=== PATIENT | female | born 1985 | race Caucasian/White ===

== ENCOUNTER 2019-04-30 12:50 | Emergency (ER) | payer BC ==
[~2019-04-30] VITALS: Ht 162.6 cm; Wt 94.3 kg
[2019-04-30] MEDS ORDERED: IV NORMAL SALINE 1,000ML 1,000 ML IV SCH (13:03)
[2019-04-30] MEDS ORDERED: diphenhydrAMINE 50 MG/ML VIAL IVP ONE (13:15)
[2019-04-30] MEDS ORDERED: METOCLOPRAMIDE HCL 10 MG/2 ML VIAL. IVP ONE (13:15)
[2019-04-30] MEDS ORDERED: SUMAtriptan SUCC 6 MG/0.5 ML VIAL SQ ONE (13:15)
[2019-04-30] MEDS ORDERED: HYDROmorphone PF 1 MG/ML DISP.SYRIN IV ONE (13:15)
--- NOTE | 2019-04-30 13:18 | PHYS DOC ---
Past History Past Medical History: Other Past Surgical History: Tubal ligation Alcohol Use: Occasionally Drug Use: None Adult General Chief Complaint Chief Complaint: HEADACHE HPI HPI Patient is a 33-year-old female who presents with complaint of migraine headache that started 4 hours ago. Patient states that she has had several episodes of vomiting since onset of the headache. Patient indicates headache is on the right hand side and she rates pain at an 7-8 out of 10. She describes pain as throbbing in nature. She denies any fever. She denies any chest pain or shortness of breath. She also denies any abdominal pain. Patient states that pain is worsened with change of position.[] Review of Systems Review of Systems Constitutional: Denies fever or chills [] Respiratory: Denies cough or shortness of breath [] Cardiovascular: No additional information not addressed in HPI [] GI: Denies abdominal pain. Complains of nausea and vomiting without diarrhea [] Integument: Denies rash or skin lesions [] Neurologic: Complains of headache without focal weakness or sensory changes [] Current Medications Current Medications Current Medications Medications (Trade) Dose Ordered Sig/Karmen Start Time Stop Time Status Last Admin Dose Admin Diphenhydramine HCl (Benadryl) 25 mg 1X ONCE 04/30/19 13:15 04/30/19 13:16 Hydromorphone HCl (Dilaudid) 1 mg 1X ONCE 04/30/19 13:15 04/30/19 13:16 Metoclopramide HCl (Reglan Vial) 10 mg 1X ONCE 04/30/19 13:15 04/30/19 13:16 Sodium Chloride 1,000 ml @ 1,000 mls/hr Q1H 04/30/19 13:03 04/30/19 14:02 Sumatriptan Succinate (Imitrex) 6 mg 1X ONCE 04/30/19 13:15 04/30/19 13:16 Allergies Allergies Allergies Coded Allergies Type Severity Reaction Last Updated Verified No Known Drug Allergies 04/30/19 No Physical Exam Physical Exam Constitutional: Well developed, well nourished, in mild distress, non-toxic appearance. [] Eyes: PERRLA, EOMI, conjunctiva normal, no discharge. [] Neck: Normal range of motion, no tenderness, supple, no stridor. [] Cardiovascular: Regular rate and rhythm[] Lungs & Thorax: Bilateral breath sounds clear to auscultation [] Abdomen: Bowel sounds normal, soft, no tenderness. [] Neurologic: Alert and oriented X 3, no focal deficits noted. [] EKG EKG [] Radiology/Procedures Radiology/Procedures [] Course & Med Decision Making Course & Med Decision Making Pertinent Labs and Imaging studies reviewed. (See chart for details) [] Dragon Disclaimer Dragon Disclaimer This electronic medical record was generated, in whole or in part, using a voice recognition dictation system. Departure Departure: Impression: Primary Impression: Migraine Disposition: 01 HOME, SELF-CARE Condition: STABLE Referrals: IRMA BERGERON MD (PCP) Patient Instructions: Migraine Headache Problem Qualifiers Primary Impression: Migraine Migraine type: unspecified Status migrainosus presence: without status migrainosus Intractability: not intractable Qualified Codes: G43.909 - Migraine, unspecified, not intractable, without status migrainosus JESICA SMITH Jr. DO Apr 30, 2019 13:18
[2019-04-30 13:54] VITALS: BP 100/50
== END 2019-04-30 13:55 | disposition home or self-care (01) ==
LOC: ER 12:50
DX: G43.909 Migraine, unspecified, not intractable, without status migrainosus (principal); R11.2 Nausea with vomiting, unspecified
CPT/HCPCS: 96372; 96374; 96375; 99284; J1170; J1200; J2765; J3030; J7030

== ENCOUNTER 2019-05-06 18:56 | Emergency (ER) | payer BC ==
[~2019-05-06] VITALS: Ht 162.6 cm; Wt 94.3 kg
[2019-05-06] MEDS ORDERED: IV RINGERS SOLUTION,LACTATED 1,000 ML IV SCH (19:49)
--- NOTE | 2019-05-06 19:49 | PHYS DOC ---
Past History Past Medical History: Anxiety, Migraines, Other Additional Past Medical Histor: CARDIOMYOPATHY Past Surgical History: Tubal ligation Alcohol Use: Occasionally Drug Use: None Adult General Chief Complaint Chief Complaint: "... I having some chest pain... going into my Lt. arm.. I been having more migraines.. too.. I have followed up with Dr. Bergeron... but this Lt arm and chest is jia new... " HPI HPI Patient is a 33 year old female who presents with above hx and complaints of chest and Lt arm pain.. Patient has had periodic chest pain in the past. Chest pain Pain has been somewhat constant the last 2 days. Patient states pain is somewhat heavy. Radiate into her left arm and shoulder. There has been some shortness of breath associated with the chest pain. Patient states nothing has made the discomfort better. Patient they are bradycardia secondary to her cardiac meds .Patient has had previous eincreased episodes of migraine headaches in the past few months. Patient has had previous cardiac workup with Dr. Silva at that was reportedly negative last evaluation. Has had a history of cardio myopathy in heart failure during .. Patient denies any trauma. No re cent travel. Patient does have a history of situational depression, anxiety, heart failure-cardiomyopathy up-to-date during , hypertension, patient was seen in Dr. Bergeron's office today and sent to the emergency department for further evaluation. Normally follows Pt. follows with Dr. Bergeron Review of Systems Review of Systems Constitutional: Denies fever or chills [] Eyes: Denies change in visual acuity, redness, or eye pain [] HENT: Denies nasal congestion or sore throat [] Respiratory: Denies cough or shortness of breath [] Cardiovascular: No additional information not addressed in HPI [] GI: Denies abdominal pain, nausea, vomiting, bloody stools or diarrhea [] : Denies dysuria or hematuria [] Musculoskeletal: Denies back pain or joint pain [] Integument: Denies rash or skin lesions [] Neurologic: Denies headache, focal weakness or sensory changes [] Endocrine: Denies polyuria or polydipsia [] All other systems were reviewed and found to be within normal limits, except as documented in this note. Family History Family History Noncontributory Current Medications Current Medications See nursing for home meds Allergies Allergies Allergies Coded Allergies Type Severity Reaction Last Updated Verified No Known Drug Allergies 04/30/19 No Physical Exam Physical Exam Constitutional: Mild distress, non-toxic appearance. [] HENT: Normocephalic, atraumatic, bilateral external ears normal, oropharynx moist, no oral exudates, nose normal. [] Eyes: PERRLA, EOMI, conjunctiva normal, no discharge. [] Neck: Normal range of motion, no tenderness, supple, no stridor. [] Cardiovascular:Heart rate regular rhythm, no murmur []PMI to the left Lungs & Thorax: Bilateral breath sounds with apex with few basilar crackles on auscultation [] Abdomen: Bowel sounds normal, soft, no tenderness, no masses, no pulsatile masses. Obese Skin: Warm, dry, no erythema, no rash. [] Back: No tenderness, no CVA tenderness. [] Extremities: No tenderness, no cyanosis, no clubbing, ROM intact, no edema. No cording appreciated Neurologic: Alert and oriented X 3, normal motor function, normal sensory function, no focal deficits noted. [] Psychologic: Affect anxious, judgement normal, mood normal. [] EKG EKG My interpretation EKG at 1958 hrs. shows a sinus rhythm with an incomplete right bundle branch block. Some nonspecific anterior changes. But no findings of acute STEMI of contralateral changes. I interpretation of this follow-up EKG at 00 30 hours on 14 shows a sinus bradycardia at 51 beats minute. Incomplete right bundle bite blocks. No findings acute STEMI of contralateral changes overall morphology is similar to prior EKG. However the has been some movement of bleed sticker placements which account for mild variation.[] Radiology/Procedures Radiology/Procedures [][address] [address] IMAGING REPORT Signed PATIENT: VIET ENGEL ACCOUNT: [id number] : 1985 LOCATION: ER AGE: 33 SEX: F EXAM STATUS: REG ER ORD. PHYSICIAN: AZAR CAMARENA MD REASON: HEADACHE PROCEDURE: CT HEAD AND CERVICAL SPINE WO STUDY: CT head and cervical spine without contrast INDICATION: Headache. COMPARISON: None. TECHNIQUE: Axial CT imaging through the head and cervical spine without the use of intravenous contrast. Sagittal and coronal reformats were obtained. One or more of the following individualized dose reduction techniques were utilized for this examination: 1. Automated exposure control 2. Adjustment of the mA and/or kV according to patient size 3. Use of iterative reconstruction technique. FINDINGS: CT head: No acute intracranial hemorrhage. Normal kiran-white matter interface. No mass effect, midline shift or hydrocephalus. Unremarkable orbits and scalp. Intact calvarium. CT cervical spine: No acute fracture or traumatic malalignment. No significant bony encroachment on the central canal or neural foramina. Unremarkable paraspinous soft tissues, thyroid and lung apices. IMPRESSION: CT head: 1. No acute intracranial abnormality. CT cervical spine: 1. No acute osseous abnormality. Electronically signed by: KINJAL ZIMMER MD (05/06/2019 11:23 PM) [facility] [id number] DICTATED AND SIGNED BY: KINJAL ZIMMER MD DATE: 05/06/19 2326 CC: IRMA BERGERON MD; AZAR CAMARENA MD ~ Course & Med Decision Making Course & Med Decision Making Pertinent Labs and Imaging studies reviewed. (See chart for details) Patient to follow-up with Dr. Bergeron and have a reevaluation by her nursing officer TOMASZ. Patient also consider neurology consultation from her chronic migraines. Continue current meds as directed. Impression 1. Atypical Chest Pain- (normal troponin and normal d-dimers) 2. History of migraines 3. Remote history of cardiomyopathy [] Dragon Disclaimer Dragon Disclaimer This electronic medical record was generated, in whole or in part, using a voice recognition dictation system. Departure Departure: Disposition: HOME/RESIDENCE PRIOR TO ADM Condition: STABLE Referrals: IRMA BERGERON MD (PCP) AZAR CAMARENA MD May 06, 2019 19:49
[2019-05-06 21:09] LABS: BARBITURATES NEG (NEG); BENZODIAZEPINES NEG (NEG); CANNABINOIDS NEG (NEG); COCAINE NEG (NEG); METHADONE NEG (NEG); OPIATES NEG (NEG); PHENCYCLIDINE NEG (NEG)
[2019-05-06 21:13] LABS: CALCIUM 8.8 mg/dL (8.5-10.1); CREATININE 0.8 mg/dL (0.6-1.0); GFR 83.7; POTASSIUM 3.9 mmol/L (3.5-5.1)
[2019-05-06 21:17] LABS: AMPHETAMINE/METHAMPHETAMINE NEG (NEG)
[2019-05-06 21:28] LABS: ALBUMIN 3.5 g/dL (3.4-5.0); DIRECT BILIRUBIN 0.1 mg/dL (0.0-0.2); TOTAL BILIRUBIN 0.2 mg/dL (0.2-1.0); TOTAL PROTEIN 6.9 g/dL (6.4-8.2)
[2019-05-06 21:46] LABS: BILIRUBIN,URINE NEG (NEG); CLARITY,URINE CLEAR; COLOR,URINE YELLOW; GLUCOSE,URINE NEG (NEG); UROBILINOGEN,URINE 0.2 mg/dL (0.2 mg/dL)
[2019-05-06 21:47] LABS: BACTERIA,URINE 0 /HPF (0-FEW); NITRITE,URINE NEG (NEG); SQUAMOUS EPITHELIAL CELL,UR OCC /LPF; WBC,URINE RARE /HPF (0-4)
[2019-05-06 22:14] LABS: SEDIMENTATION RATE 6 (0-25)
[2019-05-06 22:17] LABS: BASO % 0 % (0-3); EOS # 0.1 x10^3/uL (0.0-0.7); EOS % 1 % (0-3); HEMATOCRIT 39.9 % (36.0-47.0); HEMOGLOBIN 12.9 g/dL (12.0-15.5); LYMPH # 2.2 x10^3/uL (1.0-4.8); LYMPH % 28 % (24-48); MEAN CORPUSCULAR HEMOGLOBIN 30 pg (25-35); MEAN CORPUSCULAR HGB CONC 32 g/dL (31-37); MEAN CORPUSCULAR VOLUME 91 fL (79-100); MONO # 0.6 x10^3/uL (0.0-1.1); MONO % 7 % (0-9); NEUT % 64 % (31-73); PLATELET COUNT 313 x10^3/uL (140-400); RED BLOOD COUNT 4.38 x10^6/uL (3.50-5.40); RED CELL DISTRIBUTION WIDTH 13.3 % (11.5-14.5); WHITE BLOOD COUNT 7.9 x10^3/uL (4.0-11.0)
--- NOTE | 2019-05-06 23:25 | RAD ---
STUDY: CT head and cervical spine without contrast INDICATION: Headache. COMPARISON: None. TECHNIQUE: Axial CT imaging through the head and cervical spine without the use of intravenous contrast. Sagittal and coronal reformats were obtained. One or more of the following individualized dose reduction techniques were utilized for this examination: 1. Automated exposure control 2. Adjustment of the mA and/or kV according to patient size 3. Use of iterative reconstruction technique. FINDINGS: CT head: No acute intracranial hemorrhage. Normal kiran-white matter interface. No mass effect, midline shift or hydrocephalus. Unremarkable orbits and scalp. Intact calvarium. CT cervical spine: No acute fracture or traumatic malalignment. No significant bony encroachment on the central canal or neural foramina. Unremarkable paraspinous soft tissues, thyroid and lung apices. IMPRESSION: CT head: 1. No acute intracranial abnormality. CT cervical spine: 1. No acute osseous abnormality. Electronically signed by: KINJAL ZIMMER MD (05/06/2019 11:23 PM) [facility]
[2019-05-07] MEDS ORDERED: KETOROLAC 30 MG/ML VIAL. IVP ONE (00:30)
--- NOTE | 2019-05-07 01:11 | EKG ---
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
--- NOTE | 2019-05-07 01:13 | EKG ---
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
[2019-05-07 01:30] VITALS: BP 112/62
== END 2019-05-07 01:54 | disposition home or self-care (01) ==
LOC: ER 18:56
DX: R07.89 Other chest pain (principal); G43.909 Migraine, unspecified, not intractable, without status migrainosus; F41.9 Anxiety disorder, unspecified; I42.9 Cardiomyopathy, unspecified
CPT/HCPCS: 36415; 70450; 71046; 72125; 80048; 80076; 80307; 81001; 82550; 83690; 83735; 83880; 84443; 84484; 85025; 85379; 85610; 85651; 85730; 93005; 96374; 99285; J1885; J7120